=== PATIENT | male | born 1945 | race Caucasian/White ===

== ENCOUNTER 2017-11-28 09:55 | Day surgery (SDC) | payer MEDICARE, BC ==
[~2017-11-28] VITALS: Ht 193 cm; Wt 111.8 kg
[~2017-11-28 09:55] MED LIST: ALLO300 PO; CEPH500C3 PO; CLOP75TA PO; FURO1TAB93 OR; HYDR-3533 PO; MAGN250T13 PO; METF-324 PO; MIRA0.25 OR; OMPR20CCR PO; POTA75TA2 OR; VITA10004 PO; ZIAC106.25 PO; [UNRECOGNIZED DRUG - OTHER] PO; cpap
[2017-11-28] MEDS ORDERED: IOHEXOL 350 MG/ML 100 ML BTL (for Cath Lab) OTHER ONE (09:56)
[2017-11-28 10:41] VITALS: BP 116/69; PULSE 64; RESP 18; TEMP 97.7; O2SAT 96
[2017-11-28 10:51] LABS: AUTOMATED NEUTROPHIL # 4.2 TH/MM3 (1.8-7.7); BASOPHIL % 0.2 % (0.0-2.0); EOSINOPHIL # 0.1 TH/MM3 (0-0.4); EOSINOPHIL % 1.5 % (0.0-4.0); LYMPH % 31.3 % (9.0-44.0); LYMPHOCYTE # 2.3 TH/MM3 (1.0-4.8); MEAN CELL VOLUME 88.6 FL (80.0-100.0); MEAN CORPUSCULAR HEMOGLOBIN 29.6 PG (27.0-34.0); MEAN CORPUSCULAR HGB CONC 33.3 % (32.0-36.0); MEAN PLATELET VOLUME 8.4 FL (7.0-11.0); MONO % 10.7 % (0.0-8.0); MONOCYTE # 0.8 TH/MM3 (0-0.9); NEUT % 56.3 % (16.0-70.0); PLATELET COUNT 282 TH/MM3 (150-450); RED BLOOD COUNT 4.74 MIL/MM3 (4.50-5.90); RED CELL DISTRIBUTION WIDTH 14.1 % (11.6-17.2); WHITE BLOOD COUNT 7.4 TH/MM3 (4.0-11.0)
[2017-11-28 11:00] LABS: PROTHROMBIN TIME - PATIENT 10.6 SEC (9.8-11.6)
[2017-11-28] MEDS ORDERED: NS 1000P @30 MLS/HR (KVO) IV SCH (11:00)
[2017-11-28] MEDS ORDERED: GLIM4TAB PO (11:01)
[2017-11-28] MEDS ORDERED: KPHOS250 PO (11:01)
[2017-11-28] MEDS ORDERED: CARV25TA PO (11:01)
[2017-11-28] MEDS ORDERED: METF1000 PO (11:01)
[2017-11-28] MEDS ORDERED: PLAV75TA29 PO (11:01)
[2017-11-28] MEDS ORDERED: AMLO10TA2 PO (11:01)
[2017-11-28] MEDS ORDERED: ONETAB22 PO (11:01)
[2017-11-28] MEDS ORDERED: CITA20TA4 PO (11:01)
[2017-11-28] MEDS ORDERED: LISI-515 PO (11:01)
[2017-11-28] MEDS ORDERED: VITA100022 PO (11:01)
[2017-11-28] MEDS ORDERED: PRAM1TAB PO (11:01)
[2017-11-28] MEDS ORDERED: ALLO300T2 PO (11:01)
[2017-11-28] MEDS ORDERED: MAGN500T5 PO (11:01)
[2017-11-28] MEDS ORDERED: CHLO25TA2 PO (11:01)
[2017-11-28] MEDS ORDERED: OMEP20TA93 PO (11:01)
[2017-11-28 11:03] LABS: BICARBONATE 28.2 MEQ/L (21.0-32.0); CALCIUM 8.8 MG/DL (8.5-10.1); CREATININE 0.61 MG/DL (0.60-1.30)
[2017-11-28] MEDS ORDERED: MIDAZOLAM HCL 2 MG/2 ML VIAL ONE ×2 (14:50→14:51)
[2017-11-28] MEDS ORDERED: HEPARIN SODIUM - IV 10,000 UNITS/10 ML VIAL ONE (14:51)
--- NOTE | 2017-11-28 15:51 | CATHPROC ---
[facility] HIS Report Study Information Study Number Admission Scheduled Start Study Start [id number] Nov 28 2017 9:55AM 11/28/2017 Nov 28 2017 2:38PM [place] Service Cardiac Catheterization Admit Source Facility Department Other [facility] - Environmental Research Scientist Physician and Clinical Staff Initial Quang Levin Technician Inventory Specialist Faheem RN, Aj Other cathlab, cathlab Recorder Priyanka Pearce,BILINGUAL ADMINISTRATIVE ASSISTANT TECH2 Scrub Gabriele Omer RCIS(BS) Procedures Performed Procedure Location (Site) Vessel Name Angiogram LV LV Ventricle Coronary Angiograms LCA Left Coronary Coronary Angiograms RCA Right Coronary Equipment Time Field Producer Description Size Mfg Part Number Used/Scraped TRANSDUCER, TRUWAVE [id number] 15:09 SENIOR FALCON * Used W/STOCKCOCK *[id number] 15:27 WooWho MEDICAL VASCADE, FR5 CLOSURE SYSTEM FR 5 Used *[id number] *[id number] 15:09 Troppin INDUSTRIES PACK, CCL CUSTOM * Used *[id number] 15:09 Troppin PACER PEN, SKIN DUAL W/ RULER * Used *[id number] 15:08 MEDTRONIC AR MOD DXTERITY CATHETER FR 5 [id number] Used [id number] 15:08 MEDTRONIC JL 4.0 DXTERITY CATHETER FR 5 Used *[id number] PIG ANG 145 DXTERITY 15:09 MEDTRONIC FR 5 [id number] Used CATHETER [id number] 15:09 OSR [employer] MEDICAL WIRE, 3MMJ .035 180CM 180CM Used *[id number] PROBE COVER, STERILE [id number] 15:09 PlotWatt MEDICAL * Used ULTRASOUND W/ GEL *[id number] 15:09 NAMIC MANIFOLD, 4 PORT * Used *[id number] 15:09 NAMIC TUBING, HIGH PRESSURE 48" 48" Used *[id number] 15:11 NYCOMED OMNIPAQUE, 300 MG, 50ML 50ML [id number] Used 15:09 NYCOMED OMNIPAQUE, 350 MG, 150ML 150ML [id number] Used [id number] 15:09 PALOMINO MEDICAL BLANKET,WARM AIR CCL * Used *[id number] 15:09 TERUMO MEDICAL SHEATH, FR5 TERUMO (10CM) FR 5 Used *[id number] History: Current Medications Medication Dosage/Unit Route Frequency Last Date/Time Taken LISINOPRIL Allopurinol History: Risk Factors Family History of Hypertension Dyslipidemia Previous IA Previous Heart Failure Premature CAD Yes Yes No No Yes Prior Valve Prior PCI Prior CABG Surgery No No No Cerebrovascular Peripheral Artery Chronic Lung On Dialysis Diabetes Diabetes Therapy Disease Disease Disease No Yes No No Yes Oral History: Symptoms/Diagnosis Selection Items Chest pain History: Stress Tests Stress or Imaging Studies Performed Yes Standard Exercise Stress Test No Stress Echo No Stress Test SPECT No Stress Test CMR Stress Test CMR Result Yes Indeterminant Cardiac CTA Coronary Calcium Score No No History: Other Current Smoker Method Packs a Day Years Used Pack Years Yes Cigarettes 1 30 30 Labs Hgb (g/dl) Hct (%) WBC (l/cumm) Platelets (thousands) 11.60-17.00 35.00-51.00 4.00-11.00 150.00-450.00 14.0 42 7.4 282 Glucose (mg/dl) BUN (mg/dl) Creatinine (mg/dl) BUN:Creatinine (1:x) 74.00-106.00 7.00-18.00 0.50-1.30 10.00-20.00 143 19 0.6 31.7 Na (meq/l) K (meq/l) 136.00-145.00 3.50-5.10 141 3.6 Medication Medication Total Dose (Bolus/Oral) Medication Total Dosage/Unit 1% XYLOCAINE 20 mL FENTANYL 50 mcg OXYGEN 2 l/min VERSED 3 mg Medications (Bolus/Oral) Medication Time Given Dosage/Unit Administered By Reason FENTANYL 11/28/2017 3:03:39 PM 50 mcg Aj Mayen RN Patient arrived on 50 mcg FENTANYL given by Aj Mayen RN in Left Forearm via Peripheral IV. Ordere d by Quang Lindsay. VERSED 11/28/2017 3:04:30 PM 2 mg Aj Mayen RN Patient arrived on 2 mg VERSED given by Aj Mayen RN in Left Forearm via Peripheral IV. Ordered by Quang Lindsay. OXYGEN 11/28/2017 3:04:46 PM 2 l/min Aj Mayen RN Patient arrived on 2 l/min OXYGEN given by Aj Mayen RN via Nasal. Ordered by Quang Lindsay. 1% XYLOCAINE 11/28/2017 3:07:00 PM 20 mL Quang Lindsay Patient arrived on 20 mL 1% XYLOCAINE given by Quang Lindsay in Right Groin via Subcutaneous. Order ed by Quang Lindsay. VERSED 11/28/2017 3:14:31 PM 1 mg Aj Mayen RN Patient arrived on 1 mg VERSED given by Aj Mayen RN in Left Forearm via Peripheral IV. Ordered by Quang Lindsay. Medication (Drip) Medication Time Given Dosage/Unit Concentration/Unit Diluent (ml) Solution IV Solutions 11/28/2017 2:44:03 PM 0 mL (IV) 250 NaCl .9 Patient arrived on IV Solutions given by Aj Mayen RN in Left Forearm via Peripheral IV. Pump/Drip Flow = 20 ml/hr using NaCl .9. Ordered by Quang Lindsay. Initial Case Assessment Cardiovascular HR NIBP 58 138/77 Edema Present Skin color Skin None Normal Warm Dry Circulatory - Right Pulses Dorsalis Pedis Femoral 1 1 Scale (0,1,2,3,4,d) Circulatory - Left Pulses Dorsalis Pedis Femoral 1 1 Scale (0,1,2,3,4,d) Neurological State Oriented to time-place- Alert Moves all extremities person Respiration - General Respiration Rate SpO2 (%) (B/min) 12 98 Final Case Assessment Cardiovascular HR NIBP 53 123/67 Edema Present Skin color Skin None Normal Warm Dry Circulatory - Right Pulses Dorsalis Pedis Femoral 1 1 Scale (0,1,2,3,4,d) Circulatory - Left Pulses Dorsalis Pedis Femoral 1 1 Scale (0,1,2,3,4,d) Neurological State Oriented to time-place- Alert Moves all extremities person Respiration - General Respiration Rate SpO2 (%) (B/min) 17 98 Chronological Log Time Study Chronological Log 14:43:53 Patient arrived via Bed. 14:43:54 Patient Name, D.O.B, / Armband Verified By R.N. 14:43:54 Consent signed by the physician and the patient and verified by the Environmental Research Scientist staff. 14:43:55 Pre-op and post- op instructions given; patient acknowledges understanding of instructions. 14:43:55 Verbal Stimulation=2 Physical Stimulation=2 Airway=2 Respiration=2 TOTAL=8. (0=absent, 1=li mited, 2=present) 14:43:56 Presedation assessment performed by Environmental Research Scientist RN. 14:43:57 Immediate Presedation assesment performed by physician. 14:43:57 Patient has been NPO for More than 6Hrs. 14:43:58 NO Skin Breakdown- 14:44:00 Patient Warmer Placed on the Table. 14:44:02 Jerry Prominences Protected 14:44:03 A # 20 IV was noted in the Forearm (left). Grade = 0 Patient arrived on IV Solutions given by Aj Mayen RN in Left Forearm via Peripheral IV. Pum p/Drip Flow = 20 ml/hr 14:44:03 using NaCl .9. Ordered by Quang Lindsay. 14:44:04 History and physical on the chart or being dictated. Vitals capture started with the following parameters, Patient=Adult, Interval=5 min, Initial Pr pdnupu=196 mmHg, 14:50:56 Deflation Rate=5 mmHg, Cuff placed on Left Arm 14:51:36 HR=58 bpm, LUXF=327/77 mmhg, SpO2=98.0 %, Resp=12 B/min, Pain=0, Jordon=10, Doss=2 Assessment: Initial Case, HR=58 BPM, JCPV=737/77 mmhg, Edema=None, Color=Normal, Skin = Warm, D ry Right Pulses: Christiano Ped=1, Femoral=1 14:55:24 Left Pulses: Christiano Ped=1, Femoral=1 Neurological: State=Alert, Ox3, QUIJANO Respiration: Resp=12 B/min, SpO2=98 % 14:56:33 HR=59 bpm, WJUK=477/72 mmhg, SpO2=98.0 %, Resp=13 B/min, Pain=0, Jordon=10, Doss=2 14:56:51 Bilateral groins prepped with 2% chlorhexidine, and draped after a 3 minute waiting time. 15:00:36 Pressure channel 1 zeroed. 15:01:36 HR=57 bpm, IBJS=930/64 mmhg, SpO2=97.0 %, Resp=11 B/min, Pain=0, Jordon=10, Doss=2 Patient arrived on 50 mcg FENTANYL given by Aj Mayen RN in Left Forearm via Peripheral IV. Ordered by Angélica, 15:03:39 Quang. Patient arrived on 2 mg VERSED given by Aj Mayen RN in Left Forearm via Peripheral IV. Orde red by Angélica, 15:04:30 Quang. 15:04:46 Patient arrived on 2 l/min OXYGEN given by Aj Mayen RN via Nasal. Ordered by Rosa Lindsay. Time Out. Correct patient, correct procedure, correct physician, power injector not loaded with contrast with surgical 15:06:14 team present. Time Out Concurred by MD and individual staff in procedure. 15:06:30 Case Start 15:06:36 HR=56 bpm, BLHR=058/66 mmhg, SpO2=96.0 %, Resp=20 B/min, Pain=0, Jordon=10, Doss=2 Patient arrived on 20 mL 1% XYLOCAINE given by Quang Lindsay in Right Groin via Subcutaneous. Ordered by 15:07:00 Quang Lindsay. 15:07:11 LV INJECTOR LOADED WITH CONTRAST AND VERIFIED TO BE FREE OF AIR BY AJ MAYEN RN 15:08:53 Access site was Right Femoral Artery. 15:09:00 A SHEATH, FR5 TERUMO (10CM) FR 5 was advanced into the Fem Art (right) using the Modified S eldinger technique. A PIG ANG 145 DXTERITY CATHETER FR 5 was advanced over a wire. OMNIPAQUE, 350 MG, 150ML 150ML w as used 15:09:34 for injections. Recorded Pressure: LV, HR=54, Condition=Condition 1 15:10:45 (Left Ventricle) LV 117/4/9 15:11:35 HR=54 bpm, IZDM=098/64 mmhg, SpO2=97.0 %, Resp=17 B/min, Pain=0, Jordon=10, Doss=2 15:12:22 The LV was injected at 13 cc/sec for a total of 39. OMNIPAQUE, 300 MG, 50ML 50ML used. Recorded Pressure: LV, Ao, HR=55, Condition=Condition 1 15:13:16 (Left Ventricle) LV 115/4/5, (Aorta) Ao 116/44/68 15:13:48 Catheter was removed A JL 4.0 DXTERITY CATHETER FR 5 was advanced over a wire. OMNIPAQUE, 350 MG, 150ML 150ML was us ed for 15:13:50 injections. Patient arrived on 1 mg VERSED given by Aj Mayen RN in Left Forearm via Peripheral IV. Orde red by Angélica, 15:14:31 Quang. Recorded Pressure: Ao, HR=55, Condition=Condition 1 15:14:38 (Aorta) Ao 113/43/69 15:15:43 Catheter was removed A PIG ANG 145 DXTERITY CATHETER FR 5 was advanced over a wire. OMNIPAQUE, 350 MG, 150ML 150ML w as used 15:16:23 for injections. 15:16:36 HR=54 bpm, NHLO=037/59 mmhg, SpO2=96.0 %, Resp=19 B/min, Pain=0, Jordon=10, Doss=2 15:16:51 Reference ECG taken 15:17:18 The LCA was injected and visualized at various angles. OMNIPAQUE, 350 MG, 150ML 150ML used . 15:20:21 Catheter was removed A AR MOD DXTERITY CATHETER FR 5 was advanced over a wire. OMNIPAQUE, 350 MG, 150ML 150ML was us ed for 15:20:36 injections. 15:21:37 HR=54 bpm, ZBNA=053/59 mmhg, SpO2=97.0 %, Resp=18 B/min, Pain=0, Jordon=10, Doss=2 15:21:44 The RCA was injected and visualized at various angles. OMNIPAQUE, 350 MG, 150ML 150ML used . 15:24:54 Catheter(s) removed without difficulty 15:25:34 Case End 15:26:38 HR=54 bpm, JAJI=534/59 mmhg, SpO2=98.0 %, Resp=18 B/min, Pain=0, Jordon=10, Doss=2 15:30:24 VASCADE, FR5 CLOSURE SYSTEM FR 5 placement in the Fem Art (right) 15:31:37 HR=53 bpm, RTTO=392/63 mmhg, SpO2=98.0 %, Resp=17 B/min, Pain=0, Jordon=10, Doss=2 15:34:48 Sterile dressing applied to site 15:34:50 No case complications noted. 15:34:54 Bedside Report will be given. 15:34:56 Contrast Scanned 15:36:38 HR=53 bpm, CDKC=783/67 mmhg, SpO2=98 %, Resp=17 B/min, Pain=0, Jordon=10, Doss=2 Assessment: Final Case, HR=53 BPM, UAHU=652/67 mmhg, Edema=None, Color=Normal, Skin = Warm, Dr y Right Pulses: Christiano Ped=1, Femoral=1 15:37:33 Left Pulses: Christiano Ped=1, Femoral=1 Neurological: State=Alert, Ox3, QUIJANO Respiration: Resp=17 B/min, SpO2=98 % End Study - Contrast Media Used In Study Contrast Total Opened (mL) Total Used (mL) Total Wasted (mL) Omnipaque 100 100 0 End Study - Maximum Contrast Load Max Contrast Load (mL) 983.3 End Study - Radiation Exposure Fluoro Time (minutes) 2.5 End Study - Patient Disposition Complications Transferred To No Telemetry Bed
--- NOTE | 2017-11-29 12:23 | MR ---
cc: MARILYNN CAROLINA DATE 11/28/2017 INDICATION Congestive heart failure, cardiomyopathy, intermediate probability nuclear myocardial perfusion study. PROCEDURE PERFORMED 1. Retrograde left heart catheterization with left ventriculography and selective coronary angiography. 2. Moderate sedation. ACCESS SITE Right femoral artery. EQUIPMENT USED A 5-Bruneian pigtail catheter, 5-Bruneian JL-6 and AR-1 coronary artery catheters. MEDICATIONS Versed IV. Fentanyl IV CONTRAST Omnipaque 100 cc COMPLICATIONS None BLOOD LOSS Less than 10 cc METHOD OF HEMOSTASIS Vascade closure RESULTS HEMODYNAMICS Heart rate: 58 beats per minute. Left ventricular end-diastolic pressure 4 mmHg. Left ventricle 115/4 Aorta 115/43/69 Left ventricular ejection fraction 35%, wall motion: moderate global hypokinesis, no mitral regurgitation. CORONARY ANGIOGRAPHY The left main coronary artery is patent. The left anterior descending artery had 50% focal stenosis in the proximal portion and 30% sequential stenosis in the mid portion. First diagonal artery has 40% ostial stenosis. Left circumflex artery has 20% stenosis in the proximal portion and 40% stenosis in the mid portion distally to a large marginal branch and 20% stenosis in the distal portion. The first diagonal artery has 40% stenosis, first marginal artery has 20% ostial stenosis. Right coronary artery is a dominant vessel. There is 20% stenosis in the proximal portion with a significant amount of calcium in the right coronary and also left coronary system. DIAGNOSIS 1. Mild to moderate coronary artery disease. 2. Moderate left ventricular dysfunction consistent with nonischemic cardiomyopathy. DISPOSITION Mr. Donato will be monitored on telemetry after his procedure. We will continue and intensify aggressive modification of the cardiac risk factors. He will continue therapy for congestive heart failure. He was strongly encouraged again to quit smoking. I will see him back for followup in our office after discharge. MD CAROLYN Durand/MAUREEN /3:44 PM /12:08 PM MARY JANE
--- NOTE | 2017-11-29 22:37 | EKG ---
Date Performed: 11/28/2017 Time Performed: 10:44:56 PTAGE: 72 years EKG: Sinus rhythm Left axis deviation Left bundle branch block Possible inferior infarct - age undetermined Abnormal E CG PREVIOUS TRACING : 11/15/2011 14.33 DOCTOR: Randa Henriquez Interpretating Date/Time 11/29/2017 22:37:08
== END 2017-11-28 18:23 | disposition home or self-care (01) ==
LOC: HDOC 09:55 → HDIC 09:56 → HDOC 18:23
PROVIDERS: ATTEND Internal Medicine Interventional Cardiology
DX: I25.10 Atherosclerotic heart disease of native coronary artery without angina pectoris (principal); I50.9 Heart failure, unspecified; I42.9 Cardiomyopathy, unspecified; R94.39 Abnormal result of other cardiovascular function study; F17.210 Nicotine dependence, cigarettes, uncomplicated; I10 Essential (primary) hypertension; I44.7 Left bundle-branch block, unspecified; E78.5 Hyperlipidemia, unspecified; I34.1 Nonrheumatic mitral (valve) prolapse; G47.30 Sleep apnea, unspecified; E66.01 Morbid (severe) obesity due to excess calories; Z68.30 Body mass index [BMI] 30.0-30.9, adult; E11.9 Type 2 diabetes mellitus without complications; Z98.84 Bariatric surgery status
CPT/HCPCS: 80048; 85025; 85610; 85730; 93005; 93458; 99152; 99153; C1760; C1769; C1893; G0269; J1644; J2250; J3010; Q9967

== ENCOUNTER 2018-06-11 00:37 | Inpatient (IN) ==
[2018-06-11] MEDS ORDERED: Morphine Sulfate Inj 2 MG/ML Vial IV.PUSH ONE (01:49)
--- NOTE | 2018-06-11 01:49 | ED ---
HPI General Chief Complaint: Fall Stated Complaint: Fall Time Seen by Provider: 06/11/18 01:35 Source: patient Mode of arrival: EMS Limitations: physical limitation History of Present Illness HPI Narrative: 72-year-old male complains of right hip pain. Patient states that he tripped and fell this evening. Patient denies loss of consciousness. Patient denies any headache or neck pain. Patient denies any chest pain or shortness of breath. Patient denies abdominal pain. Patient denies any back pain. Patient complained of severe sharp pain localized the right hip. Patient denies any pain radiation. Patient states that the pain is worse with movement of the right hip joint. On a scale from 1-10 the pain is a 10. Patient has history of hypertension, diabetes, hyper lipidemia. Patient is a smoker. Patient has history of CHF in the past. complaint: fall Onset (ago): hour(s) Fall from: standing Fall witnessed: no Place fall occurred: home Loss of consciousness: none Prolonged down time: no Symptoms prior to fall: none Context: tripped/slipped Location of injury: buttocks Severity: severe Severity scale (1-10): 8 Quality: sharp Associated symptoms (after fall): denies Related Data Home Medications Medication Instructions Recorded Confirmed Unable to Obtain Home Meds 06/11/18 06/11/18 Allergies Allergy/AdvReac Type Severity Reaction Status Date / Time meperidine Allergy Severe VOMITING Unverified 11/28/17 10:06 Review of Systems Except as stated in HPI: all other systems reviewed are negative PMFSH Medical History Medical History Diabetes (Acute) High cholesterol (Acute) Surgical History Surgical History H/O gastric bypass (Acute) Social History Social History Smoking Status: Current every day smoker Tobacco Type: Cigarettes How Often Do You Have a Drink Containing Alcohol: 4 or more times a week Immunization History Tetanus Immunization: Unsure Hx Influenza Vaccine This Season: No Exam Narrative Exam Narrative: GENERAL: Well-nourished, well-developed patient. SKIN: Focused skin assessment warm/dry. HEAD: Normocephalic. EYES: No scleral icterus. No injection or drainage. NECK: Supple, trachea midline. No JVD or lymphadenopathy. CARDIOVASCULAR: Regular rate and rhythm without murmurs, gallops, or rubs. RESPIRATORY: Breath sounds equal bilaterally. No accessory muscle use. GASTROINTESTINAL: Abdomen soft, non-tender, nondistended. MUSCULOSKELETAL: Patient has moderate tenderness on palpation right hip joint. Unable to do range of motion of the right hip joint secondary to pain. Sensory motor function distally intact. BACK: Nontender without obvious deformity. No CVA tenderness. Neurologic exam normal. Course Initial Documented Vital Signs Temperature 97.8 F 06/11/18 00:53 Pulse Rate 65 06/11/18 00:53 Respiratory Rate 16 06/11/18 00:53 Blood Pressure 129/60 06/11/18 00:53 Pulse Oximetry 96 06/11/18 00:53 Last Documented Vital Signs Temperature 97.8 F 06/11/18 00:53 Pulse Rate 65 06/11/18 00:53 Respiratory Rate 16 06/11/18 00:53 Blood Pressure 129/60 06/11/18 00:53 Pulse Oximetry 96 06/11/18 02:06 Medical Decision Making [facility] Narrative Medical decision making narrative: 72-year-old male with right hip injury. Differential Diagnosis Differential Diagnosis: Differential diagnosis including contusion, fracture, dislocation. Lab Data Lab results reviewed: Yes I reviewed the patient's lab results. Result diagrams: 06/11/18 01:55 06/11/18 01:55 Lab Results 06/11/18 06/11/18 06/11/18 Range/Units 01:55 01:55 01:55 WBC 12.3 H (4.0-11.0) th/mm3 RBC 4.48 L (4.50-5.90) mil/mm3 Hgb 13.3 (13.0-17.0) gm/dL Hct 39.5 (39.0-51.0) % MCV 88.1 (80.0-100.0) fL MCH 29.8 (27.0-34.0) pg MCHC 33.8 (32.0-36.0) % RDW 14.7 (11.6-17.2) % Plt Count 256 (150-450) th/mm3 MPV 9.1 (7.0-11.0) fL Neut % (Auto) 78.3 H (16.0-70.0) % Lymph % (Auto) 13.8 (9.0-44.0) % Wetzel % (Auto) 7.0 (0.0-8.0) % Eos % (Auto) 0.7 (0.0-4.0) % Baso % (Auto) 0.2 (0.0-2.0) % Neut # (Auto) 9.6 H (1.8-7.7) th/mm3 Lymph # (Auto) 1.7 (1.0-4.8) th/mm3 Wetzel # (Auto) 0.9 (0.0-0.9) th/mm3 Eos # (Auto) 0.1 (0.0-0.4) th/mm3 Baso # (Auto) 0.0 (0.0-0.2) th/mm3 WBC Differential . Differential Comment Auto diff final PT 10.7 (9.8-11.6) sec INR 1.1 Ratio APTT 22.8 L (24.3-30.1) sec Sodium 142 (136-145) meq/L Potassium 3.9 (3.5-5.1) meq/L Chloride 108 H (98-107) meq/L Carbon Dioxide 27.7 (21.0-32.0) meq/L Anion Gap 6 (5-15) meq/L BUN 15 (7-18) mg/dL Creatinine 0.76 (0.60-1.30) mg/dL Estimated GFR Greater than 89 (>89) mL/min Random Glucose 226 H (74-106) mg/dL Calcium 8.7 (8.5-10.1) mg/dL Total Bilirubin 0.3 (0.2-1.0) mg/dL AST 20 (15-37) U/L ALT 26 (12-78) U/L Alkaline Phosphatase 67 (45-117) U/L Total Protein 6.6 (6.4-8.2) g/dL Albumin 3.5 (3.4-5.0) g/dL Imaging Data Radiologist's impression: Hip X-Ray 06/11/18 01:42 CONCLUSION: No fracture seen. Bilateral osteoarthritis of the hips, similar to 2016. Chest X-Ray 06/11/18 01:49 CONCLUSION: The lungs are clear. Hip CT 06/11/18 03:16 CONCLUSION: 1. Nondisplaced hairline fracture of the cortex extending from greater trochanter to the lesser trochanter. Discharge Plan Discharge Disposition Patient Disposition: 30 Still Patient Discharge Details Diagnosis: Fracture of femur, intertrochanteric, right, closed Physicians Team ED Provider: Behzad Vasquez Primary Care Provider: Yayo Oliveira Rxs /Orders / Referrals /Forms Prescriptions: No Action Unable to Obtain Home Meds RF: 0 Status ED Status: With Doctor
[2018-06-11] MEDS ORDERED: Sod Chloride 0.9% Inj 1,000 ML IV.CONT SCH ×2 (02:00→05:00)
[2018-06-11 02:17] LABS: Baso % (Auto) 0.2 % (0.0-2.0); Eos # (Auto) 0.1 th/mm3 (0.0-0.4); Eos % (Auto) 0.7 % (0.0-4.0); Hematocrit 39.5 % (39.0-51.0); Hemoglobin 13.3 gm/dL (13.0-17.0); Lymph # (Auto) 1.7 th/mm3 (1.0-4.8); Lymph % (Auto) 13.8 % (9.0-44.0); Mean Corpuscular HGB Conc 33.8 % (32.0-36.0); Mean Corpuscular Hemoglobin 29.8 pg (27.0-34.0); Mean Corpuscular Volume 88.1 fL (80.0-100.0); Mean Platelet Volume 9.1 fL (7.0-11.0); Mono # (Auto) 0.9 th/mm3 (0.0-0.9); Neut # (Auto) 9.6 th/mm3 (1.8-7.7); Neut % (Auto) 78.3 % (16.0-70.0); Platelet Count 256 th/mm3 (150-450); Red Blood Count 4.48 mil/mm3 (4.50-5.90); Red Cell Distribution Width 14.7 % (11.6-17.2); White Blood Count 12.3 th/mm3 (4.0-11.0)
[2018-06-11 02:27] LABS: Activated Partial Thrombo Time 22.8 sec (24.3-30.1); INR 1.1 Ratio; Prothrombin Time 10.7 sec (9.8-11.6)
[2018-06-11 02:33] LABS: Alanine Aminotransferase 26 U/L (12-78); Albumin 3.5 g/dL (3.4-5.0); Anion Gap 6 meq/L (5-15); Aspartate Aminotransferase 20 U/L (15-37); Blood Urea Nitrogen 15 mg/dL (7-18); Calcium 8.7 mg/dL (8.5-10.1); Carbon Dioxide 27.7 meq/L (21.0-32.0); Chloride 108 meq/L (98-107); Glomerular Filtration Rate Greater Than 89 mL/min (>89); Glucose,Random 226 mg/dL (74-106); Potassium 3.9 meq/L (3.5-5.1); Sodium 142 meq/L (136-145)
[2018-06-11 02:35] LABS: Alkaline Phosphatase 67 U/L (45-117); Total Protein 6.6 g/dL (6.4-8.2)
--- NOTE | 2018-06-11 02:42 | XR ---
EXAM DATE: 06/11/2018 2:34 AM EDT AGE/SEX: 72 years / Male INDICATIONS: Shortness of breath. CLINICAL DATA: This is the patient's initial encounter. Patient reports that signs and symptoms have been present for 1 day and indicates a pain score of 0/10. MEDICAL/SURGICAL HISTORY: None. None. COMPARISON: No prior exams available for comparison. FINDINGS: A single AP view of the chest demonstrates the lungs to be symmetrically aerated without evidence of mass, infiltrate or effusion. The cardiomediastinal contours are unremarkable. Osseous structures a re intact. CONCLUSION: The lungs are clear. Electronically signed by: Jose Medina MD 06/11/2018 2:40 AM EDT
--- NOTE | 2018-06-11 02:42 | XR ---
EXAM DATE: 06/11/2018 2:09 AM EDT AGE/SEX: 72 years / Male INDICATIONS: Fall today. Right hip pain since. CLINICAL DATA: This is the patient's initial encounter. Patient reports that signs and symptoms have been present for 1 day and indicates a pain score of 5/10. MEDICAL/SURGICAL HISTORY: None. None. COMPARISON: [facility], XR HIP W/ AP PELVIS, BILATERAL, 06/17/2016. . FINDINGS: The bony pelvic ring is grossly intact. Diffuse osteopenia. There is moderate severity degenerative c hanges in both hips are similar in appearance to prior examination. The primary and secondary trabecu lar pattern of the femoral neck is intact bilaterally. The arcuate lines of the sacrum or symmetric. CONCLUSION: No fracture seen. Bilateral osteoarthritis of the hips, similar to 2016. Electronically signed by: Jose Medina MD 06/11/2018 2:40 AM EDT
--- NOTE | 2018-06-11 04:48 | CT ---
EXAM DATE: 06/11/2018 3:50 AM EDT AGE/SEX: 72 years / Male INDICATIONS: Fall with right hip pain. Evaluate for fracture. CLINICAL DATA: This is the patient's initial encounter. Patient reports that signs and symptoms have been present for 1 day and indicates a pain score of 10/10. MEDICAL/SURGICAL HISTORY: Congestive heart failure. Hypertension. Diabetes mellitus type II. Dian inderjit bypass. RADIATION DOSE: 26.72 CTDI (mGy) COMPARISON: [facility], HIP RIGHT W AP PELVIS 2V, 06/11/2018. . TECHNIQUE: Multiple contiguous axial images were acquired using a multirow detector CT scanner witho ut contrast. Multiplanar reconstruction was performed in the sagittal and coronal planes. Using aut omated exposure control and adjustment of the mA and/or kV according to patient size, radiation dose was kept as low as reasonably achievable to obtain optimal diagnostic quality images. DICOM format i mage data is available electronically for review and comparison. FINDINGS: There is a hairline fracture through the base of the greater trochanter which appears to ex tend to the thickened calcar of the lesser trochanter. The fracture lucency is in the cortex and ther e is no disruption of the trabecular pattern of the femoral neck or intertrochanteric region. The fem oral head and neck is intact. Moderate severity degenerative changes in both hips. No pelvic or aceta bular fractures seen. No radiopaque foreign bodies. CONCLUSION: 1. Nondisplaced hairline fracture of the cortex extending from greater trochanter to the lesser troc hanter. Electronically signed by: Jose Medina MD 06/11/2018 4:46 AM EDT
[2018-06-11] MEDS ORDERED: Morphine Inj 4 MG/ML Vial IV.PUSH ONE (04:59)
[2018-06-11] MEDS ORDERED: HYDROmorphone PF Inj 2 MG/ML Vial IV.PUSH PRN (05:10)
[2018-06-11] MEDS ORDERED: Dextrose 50% in Water 50 ML Vial IV.PUSH PRN (05:10)
[2018-06-11] MEDS ORDERED: Bisacodyl 10 MG Supp RECTAL PRN ×2 (05:11→11:33)
[2018-06-11] MEDS ORDERED: Temazepam 15 MG Capsule PO PRN (05:11)
[2018-06-11] MEDS ORDERED: Acetaminophen 325 MG Tablet PO PRN (05:11)
--- NOTE | 2018-06-11 05:20 | P.HPIM ---
History of Present Illness Primary Care Physician: Yayo Oliveira History of Present Illness: This is a 72-year-old male with a PMH of HTN, Hyperlipidemia, DM, CHF (Unknown EF) and Tobacco Abuse who was brought to the ER by EMS for complaints of right hip pain after a fall. Patient states he was walking in his driveway when he had a sudden trip and fall, landing on his right hip. Reports pain is severe, constant, 10/10, nonradiating, worse with movement. No other injuries reported. Denies LOC or head trauma. On arrival, BP 129/60, HR 65, O2 sat 96% on RA, Afebrile. WBC 12.3. INR 1.1. Chemistry essentially unremarkable except for BS 226. Hip X-ray unremarkable. Hip CT with nondisplaced hairline fracture of the cortex extending from greater trochanter to the lesser trochanter. CXR with no acute findings. - Diagnosis (1) Fall (2) Hip fracture, right (3) HTN (hypertension) (4) DM (diabetes mellitus) (5) Tobacco abuse Inpatient Certification: I certify that the inpatient services were ordered in accordance with Medicare regulations governing the order. This includes certification that hospital inpatient services are reasonable and necessary and in the case of services not specified as inpatient-only under 42 CFR 419.22(n), that they are appropriately provided as inpatient services in accordance to with the 2-midnight benchmark under 43 CFR 412.3(e) Estimated Total Length of Stay (Days): 2 Plans for Post Hospital Care: Not yet determined Review of Systems PAST FAMILY HISTORY: Reviewed, positive for DM. 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 - Medical History Medical History: Medical History (Last Reviewed 06/11/18 @ 01:47 by Behzad Vasquez MD) Diabetes High cholesterol - Surgical History Surgical History: Surgical History (Last Reviewed 06/11/18 @ 01:47 by Behzad Vasquez MD) H/O gastric bypass - Tobacco History Tobacco Use In Past 30 Days: Yes Smoking Status: Current every day smoker Tobacco Type: Cigarettes - Alcohol History How Often Do You Have a Drink Containing Alcohol: 4 or more times a week - Immunization History Tetanus Immunization: Unsure Hx Influenza Vaccine This Season: No Medications and Allergies Active Medications: Active Medications Acetaminophen (Tylenol) 650 mg PO Q4H PRN PRN Reason: Temp > 100.4 Al Hydroxide/Mg Hydroxide (Milk Of Magnesia Liq) 30 ml PO Q12H PRN PRN Reason: Mild Constipation Bisacodyl (Dulcolax Supp) 10 mg RECTAL DAILY PRN PRN Reason: SEVERE CONSITIPATION Dextrose (D50w Vial) 50 ml IV.PUSH UNSCH PRN PRN Reason: PER HYPOGLYCEMIA PROTOCOL Glucagon (Glucagon Inj) 1 mg OTHER PRN PRN PRN Reason: for Hypoglycemia Protocol Hydromorphone HCl (Dilaudid Pf Inj) 1 mg IV.PUSH Q4H PRN PRN Reason: PAIN 6-10 Sodium Chloride (Ns Inj) 1,000 mls @ 100 mls/hr IV.CONT .Q10H HUGO Last Admin: 06/11/18 02:10 Dose: 100 mls/hr Sodium Chloride (Ns Inj) 1,000 mls @ 100 mls/hr IV.CONT .Q10H HUGO Sodium Chloride (Ns Inj) 1,000 mls @ 100 mls/hr IV.CONT .Q10H HUGO Insulin Aspart (Novolog Insulin Correctional Sugar Inj) 0 unit SQ ACHS HUGO; Protocol Lactulose (Lactulose Liq) 30 ml PO DAILY PRN PRN Reason: SEVERE CONSITIPATION Ondansetron HCl (Zofran Inj) 4 mg IV.PUSH Q6H PRN PRN Reason: NAUSEA OR VOMITING Senna/Docusate Sodium (Yarelis-Colace) 1 tab PO BID HUGO Sennosides (Senokot) 17.2 mg PO Q12H PRN PRN Reason: Moderate Constipation Temazepam (Restoril) 15 mg PO HS PRN PRN Reason: INSOMNIA Allergies Allergy/AdvReac Type Severity Reaction Status Date / Time meperidine Allergy Severe VOMITING Unverified 11/28/17 10:06 Home Medications Medication Instructions Recorded Confirmed Type Unable to Obtain Home Meds 06/11/18 06/11/18 History Exam Vital signs: Vital Signs 06/11/18 00:53 06/11/18 02:06 Temperature 97.8 F Pulse Rate 65 Respiratory Rate 16 Blood Pressure 129/60 Pulse Oximetry 96 96 Intake & Output 06/10/18 06/10/18 06/11/18 06:59 18:59 06:59 Weight 117.934 kg Narrative: PE: GENERAL: Elderly white male in no acute distress. HEENT: PERRLA, EOMI. No scleral icterus or conjunctival pallor. No lid lag or facial droop. CARDIOVASCULAR: Regular rate and rhythm. No obvious murmurs to auscultation. No chest tenderness to palpation. RESPIRATORY: No obvious rhonchi or wheezing. Clear to auscultation. Breath sounds equal bilaterally. GASTROINTESTINAL: Abdomen soft, non-tender, nondistended. BS normal. MUSCULOSKELETAL: Extremities without clubbing, cyanosis, or edema. No obvious deformities. Decreased ROM of RLE due to severe pain from fracture. NEUROLOGICAL: Awake, alert and oriented x4. No focal neurologic deficits. Moving both upper and lower extremities spontaneously. Results - Labs CBC & Chem 7: 06/11/18 01:55 06/11/18 01:55 Labs: Short CBC 06/11/18 Range/Units 01:55 WBC 12.3 H (4.0-11.0) th/mm3 Hgb 13.3 (13.0-17.0) gm/dL Hct 39.5 (39.0-51.0) % Plt Count 256 (150-450) th/mm3 BMP 06/11/18 01:55 Sodium 142 Potassium 3.9 Chloride 108 H Carbon Dioxide 27.7 BUN 15 Creatinine 0.76 Calcium 8.7 Liver Function 06/11/18 Range/Units 01:55 Total Bilirubin 0.3 (0.2-1.0) mg/dL AST 20 (15-37) U/L ALT 26 (12-78) U/L Alkaline Phosphatase 67 (45-117) U/L Albumin 3.5 (3.4-5.0) g/dL - Imaging Impressions Hip X-Ray 06/11/18 01:42 CONCLUSION: No fracture seen. Bilateral osteoarthritis of the hips, similar to 2016. Chest X-Ray 06/11/18 01:49 CONCLUSION: The lungs are clear. Hip CT 06/11/18 03:16 CONCLUSION: 1. Nondisplaced hairline fracture of the cortex extending from greater trochanter to the lesser trochanter. Caprini VTE Risk Assessment Caprini VTE Risk Assessment: No/Low Risk (score <= 1) Caprini Risk Assessment Model: Point Value = 1 Point Value = 2 Point Value = 3 Point Value = 5 Age 41-60 Minor surgery BMI > 25 kg/m2 Swollen legs Varicose veins or History of unexplained or recurrent spontaneous Oral contraceptives or hormone replacement Sepsis (< 1 month) Serious lung disease, including pneumonia (< 1 month) Abnormal pulmonary function Acute myocardial infarction Congestive heart failure (< 1 month) History of inflammatory bowel disease Medical patient at bed rest Age 61-74 Arthroscopic surgery Major open surgery (> 45 min) Laparoscopic surgery (> 45 min) Malignancy Confined to bed (> 72 hours) Immobilizing plaster cast Central venous access Age >= 75 History of VTE Family history of VTE Factor V Leiden Prothrombin [id number] Lupus anticoagulant Anticardiolipin antibodies Elevated serum homocysteine Heparin-induced thrombocytopenia Other congenital or acquired thrombophilia Stroke (< 1 month) Elective arthroplasty Hip, pelvis, or leg fracture Acute spinal cord injury (< 1 month) Prophylaxis Regimen: Total Risk Factor Score Risk Level Prophylaxis Regimen 0-1 Low Early ambulation 2 Moderate Order ONE of the following: *Sequential Compression Device (SCD) *Heparin 5000 units SQ BID 3-4 Higher Order ONE of the following medications: *Heparin 5000 units SQ TID *Enoxaparin/Lovenox 40 mg SQ daily (WT < 150 kg, CrCl > 30 mL/min) *Enoxaparin/Lovenox 30 mg SQ daily (WT < 150 kg, CrCl > 10-29 mL/min) *Enoxaparin/Lovenox 30 mg SQ BID (WT < 150 kg, CrCl > 30 mL/min) AND/OR *Sequential Compression Device (SCD) 5 or more Highest Order ONE of the following medications: *Heparin 5000 units SQ TID (Preferred with Epidurals) *Enoxaparin/Lovenox 40 mg SQ daily (WT < 150 kg, CrCl > 30 mL/min) *Enoxaparin/Lovenox 30 mg SQ daily (WT < 150 kg, CrCl > 10-29 mL/min) *Enoxaparin/Lovenox 30 mg SQ BID (WT < 150 kg, CrCl > 30 mL/min) AND *Sequential Compression Device (SCD) Assessment and Plan - Assessment (1) Fall Code(s): W19.XXXA - Unspecified fall, initial encounter Status: Acute (2) Hip fracture, right Code(s): S72.001A - Fracture of unspecified part of neck of right femur, initial encounter for closed fracture Status: Acute (3) HTN (hypertension) Code(s): I10 - Essential (primary) hypertension Status: Acute (4) DM (diabetes mellitus) Code(s): E11.9 - Type 2 diabetes mellitus without complications Status: Acute (5) Tobacco abuse Code(s): Z72.0 - Tobacco use Status: Acute - Plan A/P: 1. Fall: s/p mechanical fall in driveway, no LOC or head trauma reported, no other injuries noted. 2. Right Hip Fx: secondary to above, severe right hip pain, X-ray w/ no fracture however CT Hip showing hairline right hip fracture, images reviewed. NPO, IVF, analgesics/antiemetics, Ortho consult for eval/surgical intervention. Labs reviewed, essentially unremarkable. 3. HTN: Controlled. Pt does not know home meds, will monitor BP, antihypertensives as needed. 4. DM: Sliding scale w/ Accu-Cheks 5. Tobacco Abuse: Pt counselled. NicoDerm prn if needed 6. DVT Prophylaxis: Anticoagulation post op 7. Social work for d/c planning as needed 8. Case discussed w/ ER physician at length, labs/records/imaging reviewed by me.
[2018-06-11] MEDS: Sod Chloride 0.9% Inj 1,000 ML IV.CONT SCH ×2 (05:25→15:47)
[2018-06-11] MEDS ORDERED: Chlorhexidine Gluconate 2% 1 Pack (2 Cloths) TOPICAL SCH (06:45)
[2018-06-11] MEDS ORDERED: Metoprolol Tartrate 25 MG Tablet PO SCH (06:45)
[2018-06-11] MEDS ORDERED: Sodium Chlor 0.9% Inj 500 ML IV.SIG SCH (07:00)
[2018-06-11] MEDS: Insulin NovoLOG Aspart Correctional Sugar Inj SQ SCH ×4 (08:07→21:25)
--- NOTE | 2018-06-11 08:25 | P.CONOP ---
[facility] Orthopedics Consult Note - [facility] Consult date: 06/11/18 Chief complaint: intertrochanteric fracture Right femur Narrative: This is a 72-year-old male with a PMH of HTN, Hyperlipidemia, DM, CHF (Unknown EF) and Tobacco Abuse who was brought to the ER by EMS for complaints of right hip pain after a fall. Patient states he was walking in his driveway when he had a sudden trip and fall, landing on his right hip. Reports pain is severe, constant, 10/10, nonradiating, worse with movement. No other injuries reported. Denies LOC or head trauma. The patient had x-rays and then a CT scan performed. The CT scan revealed a intertrochanteric and greater trochanteric fracture of the right hip. The patient describes the pain as being anterior to the right hip. He denies any radiating pain or numbness below the knees. The patient typically has some balance issues because he used to be morbidly obese over 400 pounds which did affect his balance but he says typically he does not use a cane or walker for ambulation. Review of Systems A 12 point review of systems was reviewed and is negative unless as specified in the history of present illness. [facility] - History History Provided By: Patient - Medical History Medical History: Medical History (Last Reviewed 06/11/18 @ 08:21 by Aris Javier MD) Diabetes High cholesterol Kidney stones - Surgical History Surgical History: Surgical History (Last Reviewed 06/11/18 @ 08:21 by Aris Javier MD) H/O gastric bypass - Family History Family History: Family History (Last Updated 06/11/18 @ 08:21 by Aris Javier MD) Other Family history non-contributory - Tobacco History Second Hand Smoke Exposure: No Tobacco Use In Past 30 Days: Yes Smoking Status: Current every day smoker Tobacco Type: Cigarettes - Alcohol History How Often Do You Have a Drink Containing Alcohol: 4 or more times a week - Substance Use History Substance History: No History of Abuse - Immunization History Tetanus Immunization: Unsure Hx Influenza Vaccine This Season: Yes Medications and Allergies Active Medications: Active Medications Acetaminophen (Tylenol) 650 mg PO Q4H PRN PRN Reason: Temp > 100.4 Al Hydroxide/Mg Hydroxide (Milk Of Magnesia Liq) 30 ml PO Q12H PRN PRN Reason: Mild Constipation Bisacodyl (Dulcolax Supp) 10 mg RECTAL DAILY PRN PRN Reason: SEVERE CONSITIPATION Chlorhexidine Gluconate (Chlorhexidine 2% Cloth) 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 [facility] Stop: 06/14/18 06:35 Dextrose (D50w Vial) 50 ml IV.PUSH UNSCH PRN PRN Reason: PER HYPOGLYCEMIA PROTOCOL Glucagon (Glucagon Inj) 1 mg OTHER PRN PRN PRN Reason: for Hypoglycemia Protocol Hydromorphone HCl (Dilaudid Pf Inj) 1 mg IV.PUSH Q4H PRN PRN Reason: PAIN 6-10 Sodium Chloride (Ns Inj) 1,000 mls @ 100 mls/hr IV.CONT .Q10H [facility] Last Admin: 06/11/18 02:10 Dose: 100 mls/hr Sodium Chloride (Ns Inj) 1,000 mls @ 100 mls/hr IV.CONT .Q10H [facility] Last Admin: 06/11/18 05:18 Dose: 100 mls/hr Sodium Chloride (Ns Inj) 1,000 mls @ 100 mls/hr IV.CONT .Q10H [facility] Last Admin: 06/11/18 05:25 Dose: Not Given Lactated Ringer's (Lr 1000 Ml Inj) 1,000 mls @ 30 mls/hr IV.SIG .Q24H [facility] Stop: 06/14/18 06:35 Sodium Chloride (Ns Inj) 500 mls @ 30 mls/hr IV.SIG .Q10H [facility] Stop: 06/14/18 06:35 Insulin Aspart (Novolog Insulin Correctional Sugar Inj) 0 unit SQ ACHS [facility]; Protocol Last Admin: 06/11/18 08:07 Dose: Not Given Lactulose (Lactulose Liq) 30 ml PO DAILY PRN PRN Reason: SEVERE CONSITIPATION Metoprolol Tartrate (Lopressor) 25 mg PO STEAMING [employer]ACHINE [employer]PER[employer] [facility] Stop: 06/14/18 06:35 Ondansetron HCl (Zofran Inj) 4 mg IV.PUSH Q6H PRN PRN Reason: NAUSEA OR VOMITING Povidone Iodine (Betadine 5% Antisepsis Kit) 1 applicatio EACH 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 [facility] Stop: 06/14/18 06:35 Senna/Docusate Sodium (Yarelis-Colace) 1 tab PO BID [facility] Last Admin: 06/11/18 08:08 Dose: Not Given Sennosides (Senokot) 17.2 mg PO Q12H PRN PRN Reason: Moderate Constipation Temazepam (Restoril) 15 mg PO HS PRN PRN Reason: INSOMNIA Allergies Allergy/AdvReac Type Severity Reaction Status Date / Time meperidine Allergy Severe VOMITING Verified 06/11/18 06:44 Home Medications Medication Instructions Recorded Confirmed Type Unable to Obtain Home Meds 06/11/18 06/11/18 History Exam Vital signs: Vital Signs 06/11/18 00:53 06/11/18 02:06 06/11/18 05:22 Temperature 97.8 F Pulse Rate 65 75 Respiratory Rate 16 16 Blood Pressure 129/60 125/69 Pulse Oximetry 96 96 06/11/18 06:32 Temperature 98.5 F Pulse Rate 85 Respiratory Rate 20 Blood Pressure 175/79 H Pulse Oximetry 93 L Intake & Output 06/10/18 06/11/18 06/11/18 18:59 06:59 18:59 Weight 108.2 kg Other: Date of Last Bowel Movement 06/11/18 Narrative: GENERAL: The patient is awake, alert and oriented x3. The patient is no significant distress, except when he moves his hip he gets a significant jolt of pain. PSYCHIATRIC: Normal affect, insight, and judgment. HEENT: Head is atraumatic. Oropharynx is moist. Extraocular muscles are intact. NECK: Non-tender and supple. LUNGS: No audible wheezing. He has normal inspiratory effort with no signs of dyspnea HEART: Regular rate and rhythm. ABDOMEN: Soft, nontender, and nondistended. BACK: No CVA tenderness. EXTREMITIES/SKIN/NEURO/VASCULAR: The right hip has no wounds. There is some mild swelling. He has significant loss of range of motion. The right ankle has good active range of motion of the toes and ankle. There is a 2+ dorsalis pedis pulse. There is normal sensation noted distally. Examination of the bilateral upper extremities and the left lower extremity showed good active range of motion with no obvious sign of pain. Results - Labs Result Diagrams: 06/11/18 01:55 06/11/18 01:55 Labs: Laboratory Results - last 24 hr 06/11/18 06/11/18 06/11/18 01:55 01:55 01:55 WBC 12.3 H RBC 4.48 L Hgb 13.3 Hct 39.5 MCV 88.1 MCH 29.8 MCHC 33.8 RDW 14.7 Plt Count 256 MPV 9.1 Neut % (Auto) 78.3 H Lymph % (Auto) 13.8 [place] % (Auto) 7.0 Eos % (Auto) 0.7 Baso % (Auto) 0.2 Neut # (Auto) 9.6 H Lymph # (Auto) 1.7 [place] # (Auto) 0.9 Eos # (Auto) 0.1 Baso # (Auto) 0.0 WBC Differential . Differential Comment Auto diff final PT 10.7 INR 1.1 APTT 22.8 L Sodium 142 Potassium 3.9 Chloride 108 H Carbon Dioxide 27.7 Anion Gap 6 BUN 15 Creatinine 0.76 Estimated GFR Greater than 89 POC Glucose Random Glucose 226 H Calcium 8.7 Total Bilirubin 0.3 AST 20 ALT 26 Alkaline Phosphatase 67 Total Protein 6.6 Albumin 3.5 Blood Type Antibody Screen 06/11/18 06/11/18 06:42 08:07 WBC RBC Hgb Hct MCV MCH MCHC RDW Plt Count MPV Neut % (Auto) Lymph % (Auto) [place] % (Auto) Eos % (Auto) Baso % (Auto) Neut # (Auto) Lymph # (Auto) [place] # (Auto) Eos # (Auto) Baso # (Auto) WBC Differential Differential Comment PT INR APTT Sodium Potassium Chloride Carbon Dioxide Anion Gap BUN Creatinine Estimated GFR POC Glucose 240 H Random Glucose Calcium Total Bilirubin AST ALT Alkaline Phosphatase Total Protein Albumin Blood Type A Positive Antibody Screen Negative - Diagnostic results Imaging: Impressions Hip X-Ray 06/11/18 01:42 CONCLUSION: No fracture seen. Bilateral osteoarthritis of the hips, similar to 2016. I have reviewed the images for this radiology study. I agree with the interpretation given by the radiologist. Chest X-Ray 06/11/18 01:49 CONCLUSION: The lungs are clear. Hip CT 06/11/18 03:16 CONCLUSION: 1. Nondisplaced hairline fracture of the cortex extending from greater trochanter to the lesser trochanter. On reviewing the CT scan the fracture does go into the intertrochanteric region. There is also greater trochanteric involvement. Assessment and Plan - Assessment and Plan Right hip intertrochanteric/greater trochanteric fracture, nondisplaced. We discussed that this is a serious condition effecting this patient's extremity. Nonoperative and operative options were discussed and reviewed. Potential consequences of both of these options were reviewed. Since this fracture line does clearly intersect into the intertrochanteric region I would recommend surgical management as nonoperative management does have significant chance for failure including displacement of the fracture which can lead to need for emergent surgical management. Additionally, there would be significant increased problems with the right hip such as dysfunction of the right hip and inability to ambulate with weakness and/or chronic pain and deformity. The patient would like to move forward with urgent surgical management for this condition. Surgery will consist of a right hip open reduction and internal fixation with intramedullary nail. The risks and benefits of surgical management have been discussed in detail. The risks of surgery include, but are not limited to, injury to nerves, blood vessels, bleeding, infection, non- healing; loss of range on motion, dysfunction or weakness of the associated joints; blood clots, pneumonia, stroke, heart attack, and . - Attending Attestation Attending Attestation: A mid level provider in my office, nurse practitioner or PA, may see this patient on a follow up basis and continue to implement the plan including: starting or adjusting medications, injections of muscle, tendons, bursa or joints, cast application, orthotic or brace application, physical therapy, further radiographic studies including X-ray, MRI, CT, ultrasound or bone scan , vascular studies, neurological studies, or other specialist consultations, and proceeding with surgical management as appropriate.
[2018-06-11] MEDS ORDERED: Senna/Docusate Sodium 8.6/50 MG Tablet PO SCH (09:00)
[2018-06-11] MEDS ORDERED: fentaNYL Citrate Inj 250 MCG/5 ML Ampul ONE (10:12)
[2018-06-11] MEDS ORDERED: ceFAZolin 2 GM Premix Inj 2 GM/50 ML PIGGYBACK IV.SIG ONE (10:28)
[2018-06-11] MEDS ORDERED: Sodium Chlor 0.9% Inj 250 ML ONE (10:29)
[2018-06-11] MEDS ORDERED: Tranexamic Acid Inj 1,000 MG/10 ML Ampul ONE (10:30)
--- NOTE | 2018-06-11 11:24 | P.PNIM ---
Subjective Interval history: Pt was in the OR this morning. Seen after surgery, about to eat lunch. He is doing much better and states that he no longer has pain in his right hip. The pain previously felt like somebody was stabbing him with a knife. He denies chest pain or shortness of breath, fever or chills, nausea, vomiting, abdominal pain. He is considering going to a rehab center but states that he has to make sure his dog is taken care of first. Physical Exam Vital signs: Vital Signs 06/11/18 00:53 06/11/18 02:06 06/11/18 05:22 Temperature 97.8 F Pulse Rate 65 75 Respiratory Rate 16 16 Blood Pressure 129/60 125/69 Pulse Oximetry 96 96 06/11/18 06:32 06/11/18 08:00 Temperature 98.5 F 98.2 F Pulse Rate 85 77 Respiratory Rate 20 16 Blood Pressure 175/79 H 125/61 Pulse Oximetry 93 L 96 Intake & Output 06/10/18 06/11/18 06/11/18 18:59 06:59 18:59 Weight 108.2 kg Other: Date of Last Bowel Movement 06/11/18 Narrative: GENERAL: Elderly white male in no acute distress. HEENT: PERRLA, EOMI. No scleral icterus or conjunctival pallor. No lid lag or facial droop. CARDIOVASCULAR: Regular rate and rhythm. No obvious murmurs to auscultation. RESPIRATORY: No obvious rhonchi or wheezing. Clear to auscultation. Breath sounds equal bilaterally. GASTROINTESTINAL: Abdomen soft, non-tender, nondistended. BS normal. MUSCULOSKELETAL: Extremities without clubbing, cyanosis, or edema. No obvious deformities. Clean, dry, and intact dressing, covering incision site on right hip NEUROLOGICAL: Awake, alert and oriented x4. No focal neurologic deficits. Moving both upper and lower extremities spontaneously. Results - Labs CBC & Chem 7: 06/11/18 01:55 06/11/18 01:55 Laboratory Results - last 24 hr 06/11/18 06/11/18 06/11/18 01:55 01:55 01:55 WBC 12.3 H RBC 4.48 L Hgb 13.3 Hct 39.5 MCV 88.1 MCH 29.8 MCHC 33.8 RDW 14.7 Plt Count 256 MPV 9.1 Neut % (Auto) 78.3 H Lymph % (Auto) 13.8 [place] % (Auto) 7.0 Eos % (Auto) 0.7 Baso % (Auto) 0.2 Neut # (Auto) 9.6 H Lymph # (Auto) 1.7 [place] # (Auto) 0.9 Eos # (Auto) 0.1 Baso # (Auto) 0.0 WBC Differential . Differential Comment Auto diff final PT 10.7 INR 1.1 APTT 22.8 L Sodium 142 Potassium 3.9 Chloride 108 H Carbon Dioxide 27.7 Anion Gap 6 BUN 15 Creatinine 0.76 Estimated GFR Greater than 89 POC Glucose Random Glucose 226 H Calcium 8.7 Total Bilirubin 0.3 AST 20 ALT 26 Alkaline Phosphatase 67 Total Protein 6.6 Albumin 3.5 Blood Type Antibody Screen 06/11/18 06/11/18 06:42 08:07 WBC RBC Hgb Hct MCV MCH MCHC RDW Plt Count MPV Neut % (Auto) Lymph % (Auto) [place] % (Auto) Eos % (Auto) Baso % (Auto) Neut # (Auto) Lymph # (Auto) [place] # (Auto) Eos # (Auto) Baso # (Auto) WBC Differential Differential Comment PT INR APTT Sodium Potassium Chloride Carbon Dioxide Anion Gap BUN Creatinine Estimated GFR POC Glucose 240 H Random Glucose Calcium Total Bilirubin AST ALT Alkaline Phosphatase Total Protein Albumin Blood Type A Positive Antibody Screen Negative - Imaging Impressions Hip X-Ray 06/11/18 01:42 CONCLUSION: No fracture seen. Bilateral osteoarthritis of the hips, similar to 2016. Chest X-Ray 06/11/18 01:49 CONCLUSION: The lungs are clear. Hip CT 06/11/18 03:16 CONCLUSION: 1. Nondisplaced hairline fracture of the cortex extending from greater trochanter to the lesser trochanter. Assessment and Plan - Assessment (1) Fracture of femur, intertrochanteric, right, closed Code(s): S72.141A - Displaced intertrochanteric fracture of right femur, initial encounter for closed fracture Status: Acute Plan: POD 0, status post open reduction and internal fixation with intramedullary chelsey placement Orthopedic surgery on board Pain control with [place] PRN, morphine IV for breakthrough Start Lovenox in 24 hours, followed by aspirin per ortho PT on board Case management to help with discharge planning, rehab placement (2) HTN (hypertension) Code(s): I10 - Essential (primary) hypertension Status: Chronic Plan: Unsure of home medications Start lisinopril 20 mg p.o. daily Vasotec as needed SBP greater than or equal to 170 or DBP greater than or equal to 100 (3) DM (diabetes mellitus) Code(s): E11.9 - Type 2 diabetes mellitus without complications Status: Chronic Plan: Accuchecks with SSI (4) Tobacco abuse Code(s): Z72.0 - Tobacco use Status: Acute Plan: Patient was counseled previously Nicotine patch as needed (1) Fracture of femur, intertrochanteric, right, closed Qualifiers: Encounter type: initial encounter Fracture alignment: nondisplaced Qualified Code(s): S72.144A - Nondisplaced intertrochanteric fracture of right femur, initial encounter for closed fracture (2) HTN (hypertension) Qualifiers: Hypertension type: essential hypertension Qualified Code(s): I10 - Essential (primary) hypertension
--- NOTE | 2018-06-11 11:29 | P.OP ---
- Preoperative Diagnosis (1) Fracture of femur, intertrochanteric, right, closed - Postoperative Diagnosis (1) Fracture of femur, intertrochanteric, right, closed Date of procedure: 06/11/18 Procedure: Right hip treatment of intertrochanteric fracture with intramedullary chelsey. Anesthesia: GETA Surgeon: Aris Javier MD Card Tape Converter Operator: JAYLEEN Chavez The surgical procedure was assisted by my Advanced Registered Nurse Practitioner. My SUPERVISOR PLEATING presence was necessary throughout this case for the manipulation and positioning of the surgical extremity. My SUPERVISOR PLEATING was assisting me throughout the duration of this procedure. The skill set of an Advance Registered Nurse Practitioner was medically necessary to complete this procedure. During the surgical case, the durability technician was working at the back table and the Advance Registered Nurse Practitioner was directly assisting me. Operation and Findings: Estimated blood loss: 125 cc Implants: Synthes short trochanteric nail, size: 11 x 130 The patient received intravenous vancomycin and Ancef. After the appropriate anesthesia was administered, and the patient was transferred to the fracture table. The fracture was anatomically reduced under fluoroscopic imaging. The hip was prepped and draped in usual sterile fashion. We made incision just proximal to the tip of the greater trochanter. We dissected down through the deep fascia. We used a threaded guidewire at the tip of the greater trochanter which was placed down to the metaphyseal region on both the AP and lateral views. We reamed proximally. Using fluoroscopic analysis we templated the appropriate size for the short nail. This nail was then placed into position under fluoroscopic guidance. We made incision laterally based on the position of the associated jig. We then placed a threaded guidewire into the center, center of the femoral head. The appropriate length for the helical blade was measured. We drilled laterally and then step reamed the femoral neck and femoral head region. The helical blade was placed into position. We then tightened the proximal set screw, which was followed by releasing one turn off of the screw to allow for compression. The nail was secured distally with a single screw off of the jig using fluoroscopic guidance. We took final fluoroscopic imaging which revealed that the fracture remained anatomic. The hardware was in good position as well. The wounds were thoroughly irrigated and then closed with a 0 Vicryl followed by 2-0 Vicryl and magda. The postoperative plan is to start full weightbearing. Additionally, we will initiate postoperative antibiotics for 24 hours along with DVT prophylaxis consisting of early mobilization, SCDs, compression stockings, and Lovenox followed by aspirin.
[2018-06-11] MEDS ORDERED: Post-op Orders (for Pharmacy) OTHER STA (11:33)
[2018-06-11] MEDS ORDERED: Morphine Inj 4 MG/ML Vial IV.PUSH PRN (11:33)
[2018-06-11] MEDS ORDERED: Aluminum/Magnesium/Simethacone Susp 30 ML UDC PO PRN (11:33)
[2018-06-11] MEDS ORDERED: Lidocaine PF 1% Inj 5 ML Syringe INFILTRATN ONE (12:00)
[2018-06-11] MEDS ORDERED: Phenylephrine/NS 1000 MCG/10ML Syringe IV.PUSH ONE (12:00)
[2018-06-11] MEDS ORDERED: Sodium Chlor 0.9% Inj 500 ML IV.SIG ONE (12:00)
[2018-06-11] MEDS ORDERED: Glycopyrrolate Inj 1 MG/5 ML Syringe IV.PUSH ONE (12:00)
[2018-06-11] MEDS ORDERED: Neostigmine Inj 5 MG/5 ML Syringe IV.PUSH ONE (12:00)
--- NOTE | 2018-06-11 12:17 | XR ---
EXAM DATE: 06/11/2018 12:13 PM EDT AGE/SEX: 72 years / Male INDICATIONS: Open reduction right hip. CLINICAL DATA: This is the patient's subsequent encounter. Patient reports that signs and symptoms h ave been present for 2 days and indicates a pain score of Nonresponsive. MEDICAL/SURGICAL HISTORY: None. None. COMPAR[place] [facility] [place]. . FINDINGS: Postoperative views of the right hip demonstrate intramedullary chelsey and screws traversing the right f emoral neck with good anatomic alignment. CONCLUSION: Status post ORIF of a right femoral neck fracture with good anatomic alignment. Electronically signed by: Meredith Velasco MD 06/11/2018 12:16 PM EDT
[2018-06-11] MEDS: Lisinopril 20 MG Tablet PO SCH (15:44)
[2018-06-11] MEDS: Multivitamin/Minerals Therapeutic Tablet PO SCH (20:26)
[2018-06-11] MEDS: Senna/Docusate Sodium 8.6/50 MG Tablet PO SCH (20:26)
[2018-06-11] MEDS ORDERED: Zolpidem Tartrate 5 MG Tablet PO PRN (21:00)
[2018-06-12] MEDS: Sod Chloride 0.9% Inj 1,000 ML IV.CONT SCH ×2 (00:14→11:24)
[2018-06-12 05:25] LABS: Baso % (Auto) 0.1 % (0.0-2.0); Eos % (Auto) 0.1 % (0.0-4.0); Hematocrit 36.4 % (39.0-51.0); Hemoglobin 12.4 gm/dL (13.0-17.0); Lymph # (Auto) 1.7 th/mm3 (1.0-4.8); Lymph % (Auto) 13.8 % (9.0-44.0); Mean Corpuscular Hemoglobin 30.2 pg (27.0-34.0); Mean Corpuscular Volume 88.7 fL (80.0-100.0); Mean Platelet Volume 9.2 fL (7.0-11.0); Mono # (Auto) 1.4 th/mm3 (0.0-0.9); Mono % (Auto) 11.3 % (0.0-8.0); Neut % (Auto) 74.7 % (16.0-70.0); Platelet Count 237 th/mm3 (150-450)
[2018-06-12 05:41] LABS: Alanine Aminotransferase 21 U/L (12-78); Albumin 3.1 g/dL (3.4-5.0); Anion Gap 7 meq/L (5-15); Aspartate Aminotransferase 12 U/L (15-37); Blood Urea Nitrogen 9 mg/dL (7-18); Calcium 8.1 mg/dL (8.5-10.1); Carbon Dioxide 27.3 meq/L (21.0-32.0); Chloride 108 meq/L (98-107); Glomerular Filtration Rate Greater Than 89 mL/min (>89); Glucose,Random 198 mg/dL (74-106); Potassium 3.4 meq/L (3.5-5.1); Sodium 142 meq/L (136-145)
[2018-06-12 05:43] LABS: Alkaline Phosphatase 63 U/L (45-117); Total Protein 6.5 g/dL (6.4-8.2)
[2018-06-12] MEDS: Senna/Docusate Sodium 8.6/50 MG Tablet PO SCH ×2 (09:33→21:14)
[2018-06-12] MEDS: Lisinopril 20 MG Tablet PO SCH (09:33)
[2018-06-12] MEDS: Multivitamin/Minerals Therapeutic Tablet PO SCH ×2 (09:33→21:14)
[2018-06-12] MEDS: Insulin NovoLOG Aspart Correctional Sugar Inj SQ SCH ×4 (09:37→21:18)
[2018-06-12 11:25] LABS: Bilirubin,Urine Negative (Negative); Clarity,Urine Clear (Clear); Color,Urine Yellow (Yellw/Straw); Glucose,Urine (UA) 500 mg/dL (Negative); Leukocyte Esterase,Urine Negative (Negative); Nitrite,Urine Negative (Negative); PH,Urine 5.5 (5.0-8.5); Urobilinogen,Urine 0.2 mg/dL (Less than 2)
[2018-06-12 11:27] LABS: Specific Gravity,Urine 1.025 (1.002-1.035)
[2018-06-12 13:38] LABS: RBC,Urine 0-3 /hpf (0-3); WBC,Urine 0-5 /hpf (0-5)
--- NOTE | 2018-06-12 14:00 | P.PNOP ---
Subjective Interval history: Patient is resting in bed in no acute distress. The patient states his pain is mild to the right hip. The patient has been ambulatory. The patient is complaining of some burning with urination and reports that medical did order a urinalysis to rule out UTI. Physical Exam Vital signs: Vital Signs 06/11/18 16:00 06/11/18 20:00 06/11/18 21:25 Temperature 97.9 F 98.5 F Pulse Rate 83 90 Respiratory Rate 14 19 Blood Pressure 146/73 H 172/78 H 148/80 H Pulse Oximetry 90 L 95 06/12/18 00:00 06/12/18 04:00 06/12/18 08:00 Temperature 98.4 F 98.5 F 98.2 F Pulse Rate 77 76 73 Respiratory Rate 18 18 16 Blood Pressure 149/69 H 158/72 H 162/77 H Pulse Oximetry 93 L 95 95 06/12/18 12:00 Temperature 98.4 F Pulse Rate 69 Respiratory Rate 18 Blood Pressure 154/70 H Pulse Oximetry 92 L Intake & Output 06/11/18 06/12/18 06/12/18 18:59 06:59 18:59 Intake Total 700 / 700 1100 / 1100 1000 / 1000 Output Total 125 / 125 1285 / 1285 200 / 200 Balance 575 / 575 -185 / -185 800 / 800 Weight 108.25 kg Intake: IV 100 / 100 1100 / 1100 1000 / 1000 NS Inj 1,000 ML @ 100 mls/hr IV 1000 / 1000 1000 / 1000 .CONT .Q10H HUGO Rx#:[id number] Ancef Inj 1,000 MG In NS Inj 100 / 100 100 / 100 100 ML @ 200 mls/hr IV.SIG Q6H HUGO Rx#:[id number] Anesthesia Amount 600 / 600 Output: Urine 1285 / 1285 200 / 200 Estimated Blood Loss 125 / 125 Other: # Voids 3 1 Date of Last Bowel Movement 06/10/18 06/11/18 Narrative: The patient's dressings are clean, dry, and intact. EHL/TA/G are intact. 2+ pedal pulse. The patient's calf is soft and nontender. Sensation is intact to light touch distally. There is minimal swelling or ecchymosis noted. Urinalysis does not show any signs of acute infection. Results - Labs CBC & Chem 7: 06/12/18 04:33 06/12/18 04:33 Laboratory Results - last 24 hr 06/11/18 06/11/18 06/12/18 15:03 20:37 04:33 WBC 12.0 H RBC 4.10 L Hgb 12.4 L Hct 36.4 L MCV 88.7 MCH 30.2 MCHC 34.0 RDW 15.0 Plt Count 237 MPV 9.2 Neut % (Auto) 74.7 H Lymph % (Auto) 13.8 [place] % (Auto) 11.3 H Eos % (Auto) 0.1 Baso % (Auto) 0.1 Neut # (Auto) 9.0 H Lymph # (Auto) 1.7 [place] # (Auto) 1.4 H Eos # (Auto) 0.0 Baso # (Auto) 0.0 WBC Differential . Differential Comment Auto diff final Sodium Potassium Chloride Carbon Dioxide Anion Gap BUN Creatinine Estimated GFR POC Glucose 281 H 331 H Random Glucose Calcium Total Bilirubin AST ALT Alkaline Phosphatase Total Protein Albumin Urine Color Urine Clarity Urine pH Ur Specific [place] Urine Protein Urine Glucose (UA) Urine Ketones Urine Occult Blood Urine Nitrate Urine Bilirubin Urine Urobilinogen Ur Leukocyte Esterase Urine RBC Urine WBC 06/12/18 06/12/18 06/12/18 04:33 09:31 10:35 WBC RBC Hgb Hct MCV MCH MCHC RDW Plt Count MPV Neut % (Auto) Lymph % (Auto) [place] % (Auto) Eos % (Auto) Baso % (Auto) Neut # (Auto) Lymph # (Auto) [place] # (Auto) Eos # (Auto) Baso # (Auto) WBC Differential Differential Comment Sodium 142 Potassium 3.4 L Chloride 108 H Carbon Dioxide 27.3 Anion Gap 7 BUN 9 Creatinine 0.54 L Estimated GFR Greater than 89 POC Glucose 373 H Random Glucose 198 H Calcium 8.1 L Total Bilirubin 0.4 AST 12 L ALT 21 Alkaline Phosphatase 63 Total Protein 6.5 Albumin 3.1 L Urine Color Yellow Urine Clarity Clear Urine pH 5.5 Ur Specific [place] 1.025 Urine Protein Trace Urine Glucose (UA) 500 H Urine Ketones 15 H Urine Occult Blood Negative Urine Nitrate Negative Urine Bilirubin Negative Urine Urobilinogen 0.2 Ur Leukocyte Esterase Negative Urine RBC 0-3 Urine WBC 0-5 Assessment and Plan - Assessment and Plan POD #1: Right hip intertrochanteric hip fracture with intramedullary nail fixation 1. WBAT on the right lower extremity 2. Lovenox followed by aspirin for DVT prophylaxis. 3. Ice to the right hip as needed. 4. Stable per orthopedics for discharge when medically stable. 5. Anticipate discharge to long-term facility.
--- NOTE | 2018-06-12 16:16 | P.PN ---
Subjective Interval history: Pt is seen sitting up in bed. Reports sleeping well. Pain is controlled. No SOB or chest pain. No NVD. Tolerating meals well. Does report urgency and burning with urination. Physical Exam Vital signs: Vital Signs 06/11/18 16:00 06/11/18 20:00 06/11/18 21:25 Temperature 97.9 F 98.5 F Pulse Rate 83 90 Respiratory Rate 14 19 Blood Pressure 146/73 H 172/78 H 148/80 H Pulse Oximetry 90 L 95 06/12/18 00:00 06/12/18 04:00 06/12/18 08:00 Temperature 98.4 F 98.5 F 98.2 F Pulse Rate 77 76 73 Respiratory Rate 18 18 16 Blood Pressure 149/69 H 158/72 H 162/77 H Pulse Oximetry 93 L 95 95 06/12/18 09:00 06/12/18 12:00 06/12/18 15:55 Temperature 98.4 F 96.6 F L Pulse Rate 73 69 66 Respiratory Rate 18 18 Blood Pressure 154/70 H 161/70 H Pulse Oximetry 92 L 97 Intake & Output 06/11/18 06/12/18 06/12/18 18:59 06:59 18:59 Intake Total 700 / 700 1100 / 1100 1000 / 1000 Output Total 125 / 125 1285 / 1285 200 / 200 Balance 575 / 575 -185 / -185 800 / 800 Weight 108.25 kg Intake: IV 100 / 100 1100 / 1100 1000 / 1000 NS Inj 1,000 ML @ 100 mls/hr IV 1000 / 1000 1000 / 1000 .CONT .Q10H HUGO Rx#:[id number] Ancef Inj 1,000 MG In NS Inj 100 / 100 100 / 100 100 ML @ 200 mls/hr IV.SIG Q6H HUGO Rx#:[id number] Anesthesia Amount 600 / 600 Output: Urine 1285 / 1285 200 / 200 Estimated Blood Loss 125 / 125 Other: # Voids 3 1 Date of Last Bowel Movement 06/10/18 06/11/18 Narrative: GENERAL: Well-nourished, well-developed adult male in no obvious distress. SKIN: Warm and dry. RESPIRATORY: No accessory muscle use. Clear to auscultation. Breath sounds equal bilaterally. GASTROINTESTINAL: Abdomen soft, non-tender, non-distended. Positive bowel sounds. MUSCULOSKELETAL: Extremities without clubbing, cyanosis, or edema. No obvious deformities. NEUROLOGICAL: Awake and alert. No obvious cranial nerve deficits. Motor grossly within normal limits. Normal speech. PSYCHIATRIC: Appropriate mood and affect; insight and judgment good. Results - Labs CBC & Chem 7: 06/12/18 04:33 06/12/18 04:33 Laboratory Results - last 24 hr 06/11/18 06/12/18 06/12/18 20:37 04:33 04:33 WBC 12.0 H RBC 4.10 L Hgb 12.4 L Hct 36.4 L MCV 88.7 MCH 30.2 MCHC 34.0 RDW 15.0 Plt Count 237 MPV 9.2 Neut % (Auto) 74.7 H Lymph % (Auto) 13.8 [place] % (Auto) 11.3 H Eos % (Auto) 0.1 Baso % (Auto) 0.1 Neut # (Auto) 9.0 H Lymph # (Auto) 1.7 [place] # (Auto) 1.4 H Eos # (Auto) 0.0 Baso # (Auto) 0.0 WBC Differential . Differential Comment Auto diff final Sodium 142 Potassium 3.4 L Chloride 108 H Carbon Dioxide 27.3 Anion Gap 7 BUN 9 Creatinine 0.54 L Estimated GFR Greater than 89 POC Glucose 331 H Random Glucose 198 H Calcium 8.1 L Total Bilirubin 0.4 AST 12 L ALT 21 Alkaline Phosphatase 63 Total Protein 6.5 Albumin 3.1 L Urine Color Urine Clarity Urine pH Ur Specific [place] Urine Protein Urine Glucose (UA) Urine Ketones Urine Occult Blood Urine Nitrate Urine Bilirubin Urine Urobilinogen Ur Leukocyte Esterase Urine RBC Urine WBC 06/12/18 06/12/18 09:31 10:35 WBC RBC Hgb Hct MCV MCH MCHC RDW Plt Count MPV Neut % (Auto) Lymph % (Auto) [place] % (Auto) Eos % (Auto) Baso % (Auto) Neut # (Auto) Lymph # (Auto) [place] # (Auto) Eos # (Auto) Baso # (Auto) WBC Differential Differential Comment Sodium Potassium Chloride Carbon Dioxide Anion Gap BUN Creatinine Estimated GFR POC Glucose 373 H Random Glucose Calcium Total Bilirubin AST ALT Alkaline Phosphatase Total Protein Albumin Urine Color Yellow Urine Clarity Clear Urine pH 5.5 Ur Specific [place] 1.025 Urine Protein Trace Urine Glucose (UA) 500 H Urine Ketones 15 H Urine Occult Blood Negative Urine Nitrate Negative Urine Bilirubin Negative Urine Urobilinogen 0.2 Ur Leukocyte Esterase Negative Urine RBC 0-3 Urine WBC 0-5 Assessment and Plan - Assessment (1) Fall Code(s): W19.XXXA - Unspecified fall, initial encounter Status: Acute (2) Hip fracture, right Code(s): S72.001A - Fracture of unspecified part of neck of right femur, initial encounter for closed fracture Status: Acute (3) HTN (hypertension) Code(s): I10 - Essential (primary) hypertension Status: Chronic (4) DM (diabetes mellitus) Code(s): E11.9 - Type 2 diabetes mellitus without complications Status: Chronic (5) Tobacco abuse Code(s): Z72.0 - Tobacco use Status: Acute - Plan 72-year-old male status right hip fracture with fixation. Past medical history hypertension, diabetes. Right hip intertrochanteric hip fracture with intramedullary nail fixation -Managed by orthopedic - Stable per orthopedics for discharge when medically stable. Hypokalemia - 8/6 K=3.4 - mild, replacement not indicated at this time. Monitor. UTI -UA ordered; negative. Treatment not indicated. Encouraged increase water intake. DVT prophylaxis - Lovenox followed by aspirin per ortho Discussed with: Pt and nurse Discharge planning: [facility]; appreciate Case Mgt assistance (3) HTN (hypertension) Qualifiers: Hypertension type: essential hypertension Qualified Code(s): I10 - Essential (primary) hypertension
[2018-06-12 19:32] VITALS: O2SAT 97
[2018-06-13 04:44] LABS: Hematocrit 36.4 % (39.0-51.0); Hemoglobin 12.2 gm/dL (13.0-17.0)
[2018-06-13 05:11] LABS: Anion Gap 9 meq/L (5-15); Blood Urea Nitrogen 9 mg/dL (7-18); Calcium 8.5 mg/dL (8.5-10.1); Chloride 105 meq/L (98-107); Glomerular Filtration Rate Greater Than 89 mL/min (>89); Glucose,Random 210 mg/dL (74-106); Magnesium 1.6 mg/dL (1.5-2.5); Potassium 3.3 meq/L (3.5-5.1); Sodium 141 meq/L (136-145)
[2018-06-13] MEDS ORDERED: Potassium Chloride 25 MEQ Effervescent Tablet PO ONE (08:33)
--- NOTE | 2018-06-13 08:34 | P.PNIM ---
Subjective Interval history: Follow-up for UTI, right surgery Patient still complaining of dysuria with frequency, urgency and dribbling. No flank pain, no suprapubic pain. Afebrile. Right hip pain stable. Blood glucose in the 200s-300s. Patient takes metformin allegedly. Physical Exam Vital signs: Vital Signs 06/12/18 09:00 06/12/18 12:00 06/12/18 15:55 Temperature 98.4 F 96.6 F L Pulse Rate 73 69 66 Respiratory Rate 18 18 Blood Pressure 154/70 H 161/70 H Pulse Oximetry 92 L 97 06/12/18 19:49 06/12/18 20:00 06/12/18 23:27 Temperature 98.1 F 97.8 F Pulse Rate 65 62 93 H Respiratory Rate 18 18 Blood Pressure 147/73 H 172/79 H Pulse Oximetry 94 L 95 06/13/18 04:40 Temperature 97.3 F L Pulse Rate 74 Respiratory Rate 18 Blood Pressure 166/77 H Pulse Oximetry 96 Intake & Output 06/12/18 06/13/18 06/13/18 18:59 06:59 18:59 Intake Total 1960 / 1960 720 / 720 Output Total 800 / 800 Balance 1160 / 1160 720 / 720 Weight 108.25 kg Intake: IV 1000 / 1000 NS Inj 1,000 ML @ 100 mls/hr IV 1000 / 1000 .CONT .Q10H HUGO Rx#:[id number] Oral 960 / 960 720 / 720 Output: Urine 800 / 800 Other: # Voids 4 Date of Last Bowel Movement 06/11/18 # Bowel Movements 1 Narrative: GENERAL: Not in distress. SKIN: Warm and dry. RESPIRATORY: No accessory muscle use. Clear to auscultation. Breath sounds equal bilaterally. GASTROINTESTINAL: Abdomen soft, non-tender, non-distended. Positive bowel sounds. No CVA tenderness. MUSCULOSKELETAL: Extremities without clubbing, cyanosis, or edema. No obvious deformities. NEUROLOGICAL: Awake and alert. No obvious cranial nerve deficits. Motor grossly within normal limits. Normal speech. Results - Labs CBC & Chem 7: 06/13/18 04:06 06/13/18 04:06 Laboratory Results - last 24 hr 06/12/18 06/12/18 06/12/18 09:31 10:35 13:54 Hgb Hct Sodium Potassium Chloride Carbon Dioxide Anion Gap BUN Creatinine Estimated GFR POC Glucose 373 H 217 H Random Glucose Calcium Magnesium Urine Color Yellow Urine Clarity Clear Urine pH 5.5 Ur Specific [place] 1.025 Urine Protein Trace Urine Glucose (UA) 500 H Urine Ketones 15 H Urine Occult Blood Negative Urine Nitrate Negative Urine Bilirubin Negative Urine Urobilinogen 0.2 Ur Leukocyte Esterase Negative Urine RBC 0-3 Urine WBC 0-5 06/12/18 06/12/18 06/13/18 17:06 21:18 04:06 Hgb 12.2 L Hct 36.4 L Sodium Potassium Chloride Carbon Dioxide Anion Gap BUN Creatinine Estimated GFR POC Glucose 200 H 276 H Random Glucose Calcium Magnesium Urine Color Urine Clarity Urine pH Ur Specific [place] Urine Protein Urine Glucose (UA) Urine Ketones Urine Occult Blood Urine Nitrate Urine Bilirubin Urine Urobilinogen Ur Leukocyte Esterase Urine RBC Urine WBC 06/13/18 04:06 Hgb Hct Sodium 141 Potassium 3.3 L Chloride 105 Carbon Dioxide 27.0 Anion Gap 9 BUN 9 Creatinine 0.47 L Estimated GFR Greater than 89 POC Glucose Random Glucose 210 H Calcium 8.5 Magnesium 1.6 Urine Color Urine Clarity Urine pH Ur Specific [place] Urine Protein Urine Glucose (UA) Urine Ketones Urine Occult Blood Urine Nitrate Urine Bilirubin Urine Urobilinogen Ur Leukocyte Esterase Urine RBC Urine WBC Assessment and Plan - Assessment (1) Fall Code(s): W19.XXXA - Unspecified fall, initial encounter Status: Acute (2) Hip fracture, right Code(s): S72.001A - Fracture of unspecified part of neck of right femur, initial encounter for closed fracture Status: Acute (3) HTN (hypertension) Code(s): I10 - Essential (primary) hypertension Status: Chronic (4) DM (diabetes mellitus) Code(s): E11.9 - Type 2 diabetes mellitus without complications Status: Chronic (5) Tobacco abuse Code(s): Z72.0 - Tobacco use Status: Acute - Plan 72-year-old male status right hip fracture with fixation. Past medical history hypertension, diabetes. Right hip intertrochanteric hip fracture with intramedullary nail fixation -s/p ORIF. Stable per orthopedics for discharge when medically stable, cleared for d/c, WBAT RLE Hypokalemia - Replace today, Mg 1.6 UTI -UA ordered; negative. Treatment not indicated. Encouraged increase water intake. No fever, borderline leukocytosis, still with persistent symptoms, likely secondary to [place] catheter insertion. Repeat urinalysis, if negative, may discharge today. Diabetes mellitus-blood glucose in the 200-370s. Per patient he has diabetes, medications not reconciled, reconsult medications prior to discharge. DVT prophylaxis - Lovenox followed by aspirin per ortho Discharge planning: SNF today (3) HTN (hypertension) Qualifiers: Hypertension type: essential hypertension Qualified Code(s): I10 - Essential (primary) hypertension
[2018-06-13] MEDS: Senna/Docusate Sodium 8.6/50 MG Tablet PO SCH (09:29)
[2018-06-13] MEDS: Multivitamin/Minerals Therapeutic Tablet PO SCH (09:29)
[2018-06-13] MEDS: Lisinopril 20 MG Tablet PO SCH (09:29)
[2018-06-13] MEDS: Insulin NovoLOG Aspart Correctional Sugar Inj SQ SCH ×2 (09:35→12:55)
--- NOTE | 2018-06-13 09:52 | P.DS ---
Date of admission: 06/11/18 05:06 Primary care physician: Yayo Oliveira Brief History from admission: This is a 72-year-old male with a PMH of HTN, Hyperlipidemia, DM, CHF (Unknown EF) and Tobacco Abuse who was brought to the ER by EMS for complaints of right hip pain after a fall. Patient states he was walking in his driveway when he had a sudden trip and fall, landing on his right hip. Reports pain is severe, constant, 10/10, nonradiating, worse with movement. No other injuries reported. Denies LOC or head trauma. On arrival, BP 129/60, HR 65, O2 sat 96% on RA, Afebrile. WBC 12.3. INR 1.1. Chemistry essentially unremarkable except for BS 226. Hip X-ray unremarkable. Hip CT with nondisplaced hairline fracture of the cortex extending from greater trochanter to the lesser trochanter. CXR with no acute findings. DS: Diagnosis - Discharge Diagnosis (1) Fall Status: Acute (2) Hip fracture, right Status: Acute (3) HTN (hypertension) Status: Chronic (4) DM (diabetes mellitus) Status: Chronic (5) Tobacco abuse Status: Acute DS: Medications - Discharge Medications Prescriptions: aspirin 325 mg PO DAILY 30 Days #30 tab enoxaparin [Lovenox] 40 mg SUB-Q DAILY 10 Days #10 units hydrocodone-acetaminophen [[place]] 1 - 2 tab PO Q4-6H #50 tab DS: Summary Hospital Course: This is a 72-year-old male admitted for right hip fracture. Orthopedics was consulted, status post ORIF, weightbearing as tolerated per orthopedics. Hospitalization was uncomplicated. Electrolytes were replaced, chronic conditions were managed. Patient was complaining of dysuria but urinalysis remained negative and CBC was unremarkable, likely enlarged to [place] catheter insertion. Patient will be discharged to rehab for therapy. - Time Spent with Patient Total time spent providing and/or coordinating discharge services: Greater than 30 minutes - Quality: VTE Deep Vein Thrombosis/Pulmonary Embolism Present on Admission: No Exam Vital signs: Vital Signs 06/12/18 12:00 06/12/18 15:55 06/12/18 19:49 Temperature 98.4 F 96.6 F L 98.1 F Pulse Rate 69 66 65 Respiratory Rate 18 18 18 Blood Pressure 154/70 H 161/70 H 147/73 H Pulse Oximetry 92 L 97 94 L 06/12/18 20:00 06/12/18 23:27 06/13/18 04:40 Temperature 97.8 F 97.3 F L Pulse Rate 62 93 H 74 Respiratory Rate 18 18 Blood Pressure 172/79 H 166/77 H Pulse Oximetry 95 96 06/13/18 08:00 Temperature 98.4 F Pulse Rate 85 Respiratory Rate 16 Blood Pressure 157/75 H Pulse Oximetry 95 Intake & Output 06/12/18 06/13/18 06/13/18 18:59 06:59 18:59 Intake Total 1960 / 1960 720 / 720 Output Total 800 / 800 Balance 1160 / 1160 720 / 720 Weight 108.25 kg Intake: IV 1000 / 1000 NS Inj 1,000 ML @ 100 mls/hr IV 1000 / 1000 .CONT .Q10H HUGO Rx#:[id number] Oral 960 / 960 720 / 720 Output: Urine 800 / 800 Other: # Voids 4 Date of Last Bowel Movement 06/11/18 # Bowel Movements 1 Results Procedures completed during hospitalization: Status post ORIF Labs on day of discharge: Labs from last 24 hours 06/13/18 06/13/18 06/12/18 04:06 04:06 21:18 Hgb 12.2 L Hct 36.4 L Sodium 141 Potassium 3.3 L Chloride 105 Carbon Dioxide 27.0 Anion Gap 9 BUN 9 Creatinine 0.47 L Estimated GFR Greater than 89 POC Glucose 276 H Random Glucose 210 H Calcium 8.5 Magnesium 1.6 Urine Color Urine Clarity Urine pH Ur Specific [place] Urine Protein Urine Glucose (UA) Urine Ketones Urine Occult Blood Urine Nitrate Urine Bilirubin Urine Urobilinogen Ur Leukocyte Esterase Urine RBC Urine WBC 06/12/18 06/12/18 06/12/18 17:06 13:54 10:35 Hgb Hct Sodium Potassium Chloride Carbon Dioxide Anion Gap BUN Creatinine Estimated GFR POC Glucose 200 H 217 H Random Glucose Calcium Magnesium Urine Color Yellow Urine Clarity Clear Urine pH 5.5 Ur Specific [place] 1.025 Urine Protein Trace Urine Glucose (UA) 500 H Urine Ketones 15 H Urine Occult Blood Negative Urine Nitrate Negative Urine Bilirubin Negative Urine Urobilinogen 0.2 Ur Leukocyte Esterase Negative Urine RBC 0-3 Urine WBC 0-5 - Impressions ITS Impressions Hip X-Ray 06/11/18 01:42 CONCLUSION: No fracture seen. Bilateral osteoarthritis of the hips, similar to 2016. Chest X-Ray 06/11/18 01:49 CONCLUSION: The lungs are clear. Hip CT 06/11/18 03:16 CONCLUSION: 1. Nondisplaced hairline fracture of the cortex extending from greater trochanter to the lesser trochanter. Discharge Plan - Discharge Disposition Patient Disposition: 03 Discharge to SNF - Discharge Condition Condition: Good - Discharge Order Discharge Orders: Discharge Order (Routine); Ordered 06/13/18 Ordered By: Srinivas Villegas - Discharge Details Anticipated Discharge Date: 06/13/18 Discharge Comment: d/c if UA is negative and home meds reconciled - Physicians Team Primary Care Provider: Yayo Oliveira Attending Provider: Srinivas Villegas Other Providers: Aris Javier MD
[2018-06-13 13:04] LABS: Bilirubin,Urine Negative (Negative); Clarity,Urine Clear (Clear); Color,Urine Yellow (Yellw/Straw); Glucose,Urine (UA) 500 or Greater mg/dL (Negative); Leukocyte Esterase,Urine Negative (Negative); Mucus,Urine Few /lpf (Occasional); Nitrite,Urine Negative (Negative); Specific Gravity,Urine 1.012 (1.002-1.035); Squamous Epithelial Cell,Urine <1 /hpf (0-5)
[2018-06-13 17:14] LABS: Hemoglobin A1c 7.6 % (4.3-6.0)
[2018-06-13 20:16] VITALS: BP 137/84; PULSE 85; RESP 16; TEMP 97.6
[2018-06-13 20:31] LABS: Bilirubin,Urine Negative (Negative); Clarity,Urine Clear (Clear); Color,Urine Yellow (Yellw/Straw); Glucose,Urine (UA) 150 mg/dL (Negative); Leukocyte Esterase,Urine Negative (Negative); Nitrite,Urine Negative (Negative); Specific Gravity,Urine 1.005 (1.002-1.035)
== END 2018-06-13 17:22 ==
LOC: NEPE 00:37 → NEDA 05:06 → N06 06:22
PROVIDERS: ADMIT Hospitalist; ATTEND Hospitalist
PROC: ORIFHIP (2018-06-11 10:22)